=== PATIENT | female | born 2000 | race Caucasian/White ===

== ENCOUNTER 2021-11-26 09:56 | Outpatient (CLI) | payer BC, SELFPAY ==
[2021-11-26 12:22] LABS: Amphetamine Screen Urine Negative (Negative); Barbiturate Screen Urine Negative (Negative); Benzodiazepines Screen Urine Negative (Negative); Cocaine Screen Urine Negative (Negative); Methadone Screen Urine Negative (Negative); Methamphetamines Screen Urine Negative (Negative); Opiate Screen Urine Negative (Negative); Oxycodone Screen Urine Negative (Negative); Phencyclidine Screen Urine Negative (Negative); Tricyclic Antidepressant Urine Negative (Negative)
[2021-11-26 12:44] LABS: Hepatitis B Surface Antigen* Negative (Negative)
[2021-11-26 13:01] LABS: Hepatitis C Virus Antibody* Negative (Negative)
[2021-11-26 15:30] LABS: HIV 1/2/P24 Combo Screen* Negative (Negative)
[2021-11-26 15:40] LABS: Cannabinoid Screen Urine POSITIVE (Negative)
[2021-11-27 17:57] LABS: Varicella-Zoster Virus Ab, IgG 119.8 IV
[2021-11-27 18:02] LABS: Rubella Antibody IgG 69.5 IU/mL
[2021-11-28 11:46] LABS: Rapid Plasma Reagin (RPR) Non Reactive (Non Reactive)
== END 2021-11-26 09:57 | disposition home or self-care (01) ==
PROVIDERS: Visit Provider Advanced Practice Midwife
DX: Z34.91 Encounter for supervision of normal pregnancy, unspecified, first trimester (principal); Z3A.01 Less than 8 weeks gestation of pregnancy
CPT/HCPCS: 76817; 80306; 84702; 86592; 86703; 86762; 86787; 86803; 86850; 86900; 86901; 87086; 87340

== ENCOUNTER 2021-11-28 08:23 | Outpatient (CLI) | payer BC, SELFPAY | END 2021-11-28 08:24 | disposition home or self-care (01) | LOC: NFLDREF 08:23 | PROVIDERS: Visit Provider Advanced Practice Midwife | DX: Z34.90 Encounter for supervision of normal pregnancy, unspecified, unspecified trimester (principal) | CPT/HCPCS: 84702 ==

== ENCOUNTER 2021-12-12 09:41 | Outpatient (CLI) | payer BC, SELFPAY ==
--- NOTE | 2021-12-12 09:45 | CRLHL7_ITS ---
For Patients: As a result of the Century Cures Act, medical imaging exams and procedure reports are released immediately into your electronic medical record. You may view this report before your referring provider. If you have questions, please contact your health care provider. INDICATION: First trimester scan, establish dates. COMPARISON: None. TECHNIQUE: Real-time leigh-scale imaging of the pelvis was performed. FINDINGS: Sonographic imaging demonstrates a single intrauterine gestation. No heart rate. The embryo`s crown-rump length measurement of 0.3 cm corresponds to a gestational age of 5 weeks 6 days with a sonographic due date of 08/08/2022. There is a normal-appearing yolk sac. There are no gross abnormalities noted within the embryo at this early state of development. The gestational sac has a normal appearance. There is a 0.6 x 1.7 x 0.9 cm perigestational hemorrhage. The amount of fluid within the sac appears appropriate for gestational age. The cervix is closed. The myometrium appears normal. The ovaries are of normal size. Corpus luteal cyst right ovary. There are no suspicious fluid collections noted in the cul-de-sac. IMPRESSION: 3 millimeter crown-rump length without heart tones on today`s study. This likely represents a normal very early gestation and follow-up in 2 weeks recommended. Dictated by Thomas Howell MD @ 12/12/2021 10:42:44 AM (Electronically Signed)
== END 2021-12-12 09:42 | disposition home or self-care (01) ==
LOC: US 09:41
PROVIDERS: Visit Provider Advanced Practice Midwife
DX: Z34.91 Encounter for supervision of normal pregnancy, unspecified, first trimester (principal)
CPT/HCPCS: 76817